=== PATIENT | female | born 1945 | race Caucasian/White ===

== ENCOUNTER 2016-11-26 15:31 | Emergency (ER) | payer MEDICARE ==
[~2016-11-26] VITALS: Ht 157.5 cm; Wt 56.9 kg
[~2016-11-26 15:31] MED LIST: AMLO5 PO; MECL-62 PO
[2016-11-26 15:48] VITALS: BP 195/102; PULSE 86; RESP 18; TEMP 98.5; O2SAT 100
[2016-11-26] MEDS ORDERED: HYDR12.57 PO (16:40)
[2016-11-26] MEDS ORDERED: ALBU6.7H INH (16:40)
[2016-11-26] MEDS ORDERED: CIPR-9 PO (16:40)
[2016-11-26 16:43] VITALS: BP 208/119; PULSE 85; RESP 17
--- NOTE | 2016-11-26 16:51 | PD ---
HPI Chief Complaint: Cold / Flu Symptoms Time Seen by Provider: 16:38 Travel History International Travel<30 days: No Contact w/Intl Traveler<30days: No Traveled to known affect area: No History of Present Illness HPI The patient was seen and examined in the presence of the nurse. This patient complains of general malaise. She feels achy and tired. She's had runny nose congestion and dry cough. Those rest for symptoms have improved. She moves her torso or certain way she gets chest discomfort but is very musculoskeletal. It is not exertional. No shortness of breath or fever. Symptoms severity is moderate. No alleviating factors. Duration is one month PFSH Past Medical History Cancer: No Cardiovascular Problems: Yes (SD was suspected r/o w/ cardiac cath 20 yrs ago) High Cholesterol: No Diminished Hearing: No Endocrine: No Genitourinary: No Hypertension: Yes Immune Disorder: No Medical other: Yes (VERTIGO) Musculoskeletal: No Neurologic: No Psychiatric: No Reproductive: Yes Respiratory: No Tetanus Vaccination: > 5 Years Influenza Vaccination: No ?: Not Past Surgical History Abdominal Surgery: Yes (gallbladder removal ) Cholecystectomy: Yes Gynecologic Surgery: Yes (partial hysterectomy ) Hysterectomy: Yes Other Surgery: Yes Social History Alcohol Use: No Tobacco Use: No Substance Use: No Allergies-Medications (Allergen,Severity, Reaction): Coded Allergies: Cat Dander (Verified Allergy, Unknown, 11/26/16) Dairy (Verified Allergy, Unknown, 11/26/16) Dog Dander (Verified Allergy, Unknown, 11/26/16) Sulfa (Verified Allergy, Unknown, 11/26/16) Reported Meds & Prescriptions Reported Meds & Active Scripts Active Norvasc (Amlodipine Besylate) 5 Mg Tab 5 Mg PO DAILY 30 Days Reported Proventil Hfa 6.7 GM Inh (Albuterol Sulfate) 90 Mcg/Act Aer 1 Puff INH Q4H PRN Hydrochlorothiazide 12.5 Mg Cap 12.5 Mg PO DAILY Cipro (Ciprofloxacin HCl) 500 Mg Tab 500 Mg PO BID Review of Systems General / Constitutional: No: Fever Eyes: No: Visual changes HENT: Positive: Rhinorrhea, No: Headaches Cardiovascular: Positive: Chest Pain or Discomfort Respiratory: Positive: Cough, No: Shortness of Breath Gastrointestinal: No: Abdominal Pain Genitourinary: No: Dysuria Musculoskeletal: No: Pain Skin: No Rash Neurologic: No: Weakness Psychiatric: No: Depression Endocrine: No: Polydipsia Hematologic/Lymphatic: No: Easy Bruising Physical Exam Narrative GENERAL: Well-nourished, well-developed patient in no apparent distress. SKIN: Warm and dry. HEAD: Atraumatic. Normocephalic. EYES: Pupils equal and round. No scleral icterus. No injection or drainage. ENT: No nasal bleeding or discharge. Mucous membranes pink and moist. NECK: Trachea midline. No JVD. CARDIOVASCULAR: Regular rate and rhythm. No murmur appreciated. RESPIRATORY: No accessory muscle use. Clear to auscultation. Breath sounds equal bilaterally. GASTROINTESTINAL: Abdomen soft, non-tender, nondistended. Hepatic and splenic margins not palpable. MUSCULOSKELETAL: No obvious deformities. No clubbing. No cyanosis. No edema. NEUROLOGICAL: Awake and alert. No obvious cranial nerve deficits. Motor grossly within normal limits. Normal speech. PSYCHIATRIC: Appropriate mood and affect; insight and judgment normal. Data Data Last Documented VS Vital Signs Date Time Temp Pulse Resp B/P Pulse Ox O2 Delivery O2 Flow Rate FiO2 11/26/16 17:41 83 17 164/90 94 Room Air 11/26/16 15:48 98.5 Orders Electrocardiogram (11/26/16 ) ^ [employer] / Telemetry (11/26/16 16:47) Clonidine (Catapres) (11/26/16 17:00) MDM Medical Decision Making Medical Screen Exam Complete: Yes Emergency Medical Condition: Yes Medical Record Reviewed: Yes Differential Diagnosis Accelerated hypertension, depression, flu syndrome Narrative Course I have reviewed the patient's electronic medical record. Patient was hospitalized for dizziness and lightheadedness month one month ago Patient has accelerated hypertension of 208 systolic and a dose of clonidine given Will be reassessed. Recheck at 1800 is 164/90 Extended cardiac monitoring reveals sinus rhythm without ectopy I reviewed her EKG which shows sinus rhythm with no ST elevation or ectopy Patient clearly has chest wall pain which will not require further evaluation at this time Patient seems somewhat depressed with flat affect and multiple somatic complaints but no objective findings She denies feeling suicidal and admits to depression She is working on getting primary care follow-up She ran out of her Norvasc which I will refill for her, she has hydrochlorothiazide Diagnosis Primary Impression: Accelerated hypertension Additional Impressions: Malaise Costochondritis Scripts Amlodipine (Norvasc)5 Mg Tab5 Mg PO DAILY 30 Days Prov:Gerardo Barber MD 11/26/16 Disposition: 01 DISCHARGE HOME Condition: Stable Gerardo Barber MD Nov 26, 2016 16:51
[2016-11-26] MEDS ORDERED: AMLO5 PO (16:52)
[2016-11-26] MEDS ORDERED: cloNIDine HCL 0.2 MG TAB PO ONE (17:00)
[2016-11-26 17:41] VITALS: BP 164/90; PULSE 83; RESP 17; O2SAT 94
[2016-11-26 18:18] VITALS: BP 113/80
--- NOTE | 2016-11-27 20:30 | EKG ---
Date Performed: 11/26/2016 Time Performed: 17:02:26 PTAGE: 70 years EKG: Sinus rhythm Extensive ST-T changes are nonspecific Borderline ECG PREVIOUS TRACING : 10/26/2016 14.47 Compared to prior tracing no significant change DOCTOR: Ashvin Allen Interpretating Date/Time 11/27/2016 20:30:04
== END 2016-11-26 18:23 | disposition home or self-care (01) ==
LOC: PHED 15:31
DX: I10 Essential (primary) hypertension (principal); M94.0 Chondrocostal junction syndrome [Tietze]; R53.81 Other malaise
CPT/HCPCS: 93005